=== PATIENT | male | born 1945 | race Caucasian/White ===

== ENCOUNTER 2016-11-30 09:43 | Emergency (ER) | payer MEDICARE ==
[2016-11-30 10:22] VITALS: BP 114/52
--- NOTE | 2016-11-30 11:06 | UC ---
Skin Complaint HPI - HPI Summary HPI Summary: ONE WEEK OF PAINFUL RASH OF SMALL BLISTERS ON RIGHT SIDE OF TORSO, WORSENING WITH "DEEP BURNING" PAIN SINCE ONSET. NO FEVER. RASH DOES NOT OCCUR ANYWHERE ELSE. NO TRAUMA. - History of Current Complaint Chief Complaint: UCSkin Time Seen by Provider: 11/30/16 10:43 Stated Complaint: ? SHINGLES Hx Obtained From: Patient, Family/Expressive Therapist Onset/Duration: Gradual Onset, Lasting Days, Still Present, Worse Since - PROGRESSIVE Skin Exposure Onset/Duration: Days Ago Onset Severity: Moderate Current Severity: Moderate Location: Discrete - RIGHT POSTERIOR TORSO Character: Redness, Painful Aggravating: Touch Alleviating: Nothing Associated Signs & Symptoms: Positive: Rash, Drainage, Tenderness. Negative: Nausea, Vomiting, Numbness, Fever, Chills, Cough, Hoarseness, Bruising, Red Streaks, Joint Swelling Related History: Possible Reaction to: Environmental Exposure - Allergy/Home Medications Allergies/Adverse Reactions: Allergies Allergy/AdvReac Type Severity Reaction Status Date / Time Protamine Allergy Severe lost blood Verified 11/30/16 10:14 pressure Celecoxib [From Celebrex] AdvReac Mild Edema Verified 11/30/16 10:14 Gabapentin AdvReac Mild Edema Verified 11/30/16 10:14 Pregabalin [From Lyrica] AdvReac Mild Swelling Verified 11/30/16 10:14 Home Medications: Home Medications Dulaglutide (NF) [Trulicity (NF)] 1.5 mg SUBCUT WEEKLY 11/30/16 [History Confirmed 11/30/16] Febuxostat(NF) [Uloric(NF)] 40 mg PO DAILY 11/30/16 [History Confirmed 11/30/16] Ferrous Sulfate TAB* 325 mg PO DAILY 11/30/16 [History Confirmed 11/30/16] Sacubitril/Valsartan (NF) [Entresto (NF)] 1 tab PO DAILY 11/30/16 [ History Confirmed 11/30/16] traMADol TAB* [Ultram*] 50 mg PO TID PRN 11/30/16 [History Confirmed 11/30/16] Review of Systems Constitutional: Negative Skin: Rash Eyes: Negative ENT: Negative Respiratory: Negative Cardiovascular: Negative Gastrointestinal: Negative Genitourinary: Negative Motor: Negative Neurovascular: Negative Musculoskeletal: Negative Neurological: Negative Psychological: Negative All Other Systems Reviewed And Are Negative: Yes PMH/Surg Hx/FS Hx/Imm Hx Previously Healthy: Yes Endocrine History Of: Reports: Diabetes Cardiovascular History Of: Reports: Cardiac Disorders - [place] x2, Hypertension, Pacemaker/ICD - DEFIBRILLATOR, Congestive Heart Failure - 08/2013 Other History Of: Anticoagulant Therapy - Surgical History Surgical History: Yes Surgery Procedure, Year, and Place: CABG 4 vessel 2000- [facility]. cholecystectomy- [facility] 2004. back surgery x2 05/22/09, 03/09/10[place]. [place] [facility] [place] [facility]. CARDIAC CATH- 08/27- [place]- [facility]. implanted cardiac defibrillator-2013 [place] - Family History Known Family History: Positive: Cardiac Disease - Social History Occupation: Retired Lives: With Family Alcohol Use: None Substance Use Type: None, Prescribed Smoking Status (MU): Never Smoked Tobacco Physical Exam Triage Information Reviewed: Yes Appearance: Well-Appearing, Well-Nourished, Pain Distress, Obese Vital Signs: Initial Vital Signs Temp 97.9 F 11/30/16 10:16 Pulse 76 11/30/16 10:16 Resp 20 11/30/16 10:16 BP 114/52 11/30/16 10:16 Pulse Ox 98 11/30/16 10:16 Vital Signs Reviewed: Yes Eye Exam: Normal ENT Exam: Normal ENT: Positive: Normal ENT inspection, Hearing grossly normal, Pharynx normal, TMs normal Dental Exam: Normal Neck exam: Normal Neck: Positive: Supple, Nontender, No Lymphadenopathy Respiratory Exam: Normal Respiratory: Positive: Chest non-tender, Lungs clear, Normal breath sounds, No respiratory distress, No accessory muscle use Cardiovascular Exam: Normal Cardiovascular: Positive: RRR, No Murmur, Pulses Normal Abdominal Exam: Normal Abdomen Description: Positive: Nontender, No Organomegaly Musculoskeletal Exam: Normal Neurological Exam: Normal Psychological Exam: Normal Skin: Positive: rashes Course/Dx - Differential Diagnoses - Skin Complaint Differential Diagnoses: Abscess, Cellulitis, Contact Dermatitis, Impetigo, MRSA , Poison [place], Poison [place], Tinea, Varicella Zoster - Diagnoses Provider Diagnoses: HERPES ZOSTER Discharge - Discharge Plan Condition: Stable Disposition: HOME Prescriptions: Famciclovir [Famvir] 500 mg PO TID #21 tab Patient Education Materials: Shingles (ED) Referrals: David Daniels MD [Primary Care Provider] - Images Front/Back of Body, Lg ([place]): 1 - RASH HERE
== END 2016-11-30 11:02 | disposition home or self-care (01) ==
LOC: UCCORT 09:43
DX: B02.9 Zoster without complications (principal); E11.9 Type 2 diabetes mellitus without complications; I25.2 Old myocardial infarction; I10 Essential (primary) hypertension; I50.9 Heart failure, unspecified; E66.9 Obesity, unspecified; Z95.1 Presence of aortocoronary bypass graft; Z95.810 Presence of automatic (implantable) cardiac defibrillator; Z79.01 Long term (current) use of anticoagulants; Z90.49 Acquired absence of other specified parts of digestive tract
CPT/HCPCS: 99212; G0463